=== PATIENT | female | born 1950 | race Hispanic/Latino ===

== ENCOUNTER 2018-08-31 13:44 | Outpatient (CLI) | payer OTHER, MEDICARE, BC | END 2018-08-31 13:45 | disposition home or self-care (01) | LOC: RAD 13:44 ==

== ENCOUNTER 2018-09-02 05:33 | Outpatient (CLI) | payer OTHER | END 2018-09-02 05:34 | disposition home or self-care (01) | LOC: CARDIO 05:33 | DX: N18.6 End stage renal disease (principal); Z01.818 Encounter for other preprocedural examination ==